=== PATIENT | female | born 1965 | race Caucasian/White ===

== ENCOUNTER → 2021-06-08 | Day surgery (SDC) | payer OTHER ==
[~2021-06-08] MED LIST: FAMOTIDINE 20 MG/2 ML VIAL IV ONE; GLUCAGON 1 MG/VIAL ONE; ONDANSETRON 4 MG/2 ML VIAL ONE; PROMETHAZINE INJ 25 MG/ML AMP ONE; propofoL 200 MG/20 ML VIAL IV ONE
--- OUTSIDE RECORDS SUMMARY | 2021-06-08 14:48 | XMS REPORT | Continuity of Care Document ---
:1965 Author Organization [facility] t Address [address] [place] [address] Care Team Providers Name Role Phone ISATU Attending Clinician Unavailable MISTY Attending Clinician Unavailable SG Attending Clinician Unavailable Payers Payer Name Policy Type Policy Number Effective Date Expiration Date S ource Problems Condition Condition Condition Status Onset Resolution Last Treating Co mments Source Name Details Category Date Date Treatment Clinician Date Joint pain Joint pain Problem Active U nivers of lower [place] extremity [place] [facility] Peroneal Peroneal Problem Active Unive rs tendinitis tendinitis it y of , right , right [place] [facility] Metatarsal Metatarsal Problem Active U nivers madyson, left madyson, left ity of foot foot [place] [facility] Lesion of Lesion of Problem Active Uni vers plantar plantar ity of nerve, nerve, [place] right right Physici lower limb lower limb an s Allergies, Adverse Reactions, Alerts Allergy Allergy Status Severity Reaction(s) Onset Inactive Treating Comm ents Source Name Type Date Date Clinician No Known DA Active U [facility] Allergie 09-22 [place] [facility] 00:00: [facility] Medications Ordered Filled Start Stop Current Ordering Indication Dosage Frequency Signature Comments Components Source Medication Medication Date Date Medication? Clinician (SIG) Name Name methylPREDN methylPREDN 2018-06 Yes MICHELLE Univers ISolone 4 ISolone 4 07-23 SG DIRECTED ity of MG Oral MG Oral 00:00: SUPPLY MANAGER [place] Tablet Tablet 00 Physici Therapy Therapy ans Pack Pack Procedures Procedure Date / Time Performed Performing Clinician [facility] e MR Foot wo contrast 2019-05-23 00:00:00 [facility] [id number] Physicians Encounters Start End Encounter Admission Attending Care Care Encounter Source Date/Time Date/Time Type Type Clinicians Facility Department ID 2020-06-18 2020-06-18 Outpatient ISATU [facility] [id number] 00:00:00 00:00:00 ANEUDY otero 2019-06-27 2019-06-27 [facility] [id number] Univers 13:45:00 13:45:00 t; prudence HURTADO [facility] shukri JAY M.D. [facility]ESIS [facility] Benitez yoder M.D. and Spine [facility] 2019-05-30 2019-05-30 RJ Brower [facility] [id number] Univers 11:30:00 11:30:00 t; nitish HURTADO M.D. [place] Melvin HURTADO M.D. [facility] 2019-05-23 2019-05-23 RJ G[facility] [id number] Univers 13:30:00 13:30:00 t; prudence MARTINEZ [facility] [place] MICHELLE, Medicine Physi ci SUPPLY MANAGER [facility] [address] Results This patient has no known results.
--- NOTE | 2021-06-08 15:50 | RAD REPORT ---
EXAM DESCRIPTION: RAD - Chest Single View - 06/08/2021 3:36 pm CLINICAL HISTORY: foreign body sensation in chest COMPARISON: None TECHNIQUE: AP portable chest image was obtained 06/08/2021 3:36 pm . FINDINGS: Lungs are clear. Trachea is midline. No air trapping is evident. Mild prominence of the in terstitial pattern believed be baseline. No foreign body is identifiable. Heart and vasculature are normal. No measurable pleural effusion and no pneumothorax. No acute bony a bnormality seen. No acute aortic findings suspected. IMPRESSION: No acute cardiopulmonary process.
[2021-06-08 16:08] LABS: Absolute Lymphocytes (CBC) 1.7 K/uL (0.7-4.9); Basophils % 0.9 % (0-1.3); Hematocrit 39.9 % (36.0-45.0); MPV 8.7 fL (7.6-11.3)
[2021-06-08 16:16] LABS: Protime INR 1.16
[2021-06-08 16:28] LABS: ALT/SGPT 22 U/L (12-78); AST/SGOT 19 U/L (15-37); Albumin 3.6 g/dL (3.4-5.0); Alkaline Phosphatase 72 U/L (45-117); BUN Blood Urea Nitrogen 21 mg/dL (7-18); Bicarbonate 28 mmol/L (21-32); Bilirubin Direct 0.1 mg/dL (0-0.2); Bilirubin Total 0.4 mg/dL (0.2-1.0); Glucose Level 104 mg/dL (74-106); Magnesium 2.3 mg/dL (1.8-2.4); Potassium 3.9 mmol/L (3.5-5.1); Protein, Total 7.1 g/dL (6.4-8.2); Sodium Level 142 mmol/L (136-145); Troponin (Emerg Dept Use Only) < 0.02 ng/mL (0.0-0.045)
--- NOTE | 2021-06-08 17:42 | EDPHYS ---
Physician Documentation [facility] Name: Braeden Lucio Age: 56 yrs Sex: Female : 1965 Arrival Date: 06/08/2021 Time: 14:47 Bed 10 Private MD: ED Physician Landry Gomez HPI: 06/08 15:25 This 56 yrs old Female presents to ER via Ambulatory with complaints of Foreign Body In cp Throat. 15:25 The patient or guardian reports chest pain that is located primarily in the substernal cp area. 15:25 Onset: today. The pain does not radiate. Patient reports she was eating a burrito and cp feels like she has food stuck in mid chest area. Patient reports nausea and vomiting since. Patient denies any previous history of having food stuck in esophagus. Historical: - Allergies: 15:03 Bactrim; vg1 15:03 benzocaine; vg1 - Home Meds: 15:03 Incruse Inhaler [Active]; ProAir [Active]; vg1 - PMHx: 15:03 Asthma; Hypothyroidism; HYPOGLYCEMIA; vg1 - Immunization history:: Client reports receiving the 2nd dose of the Covid vaccine. - Social history:: Smoking status: Patient denies any tobacco usage or history of. ROS: 15:30 Constitutional: Negative for body aches, chills, fever, poor PO intake. cp 15:30 Eyes: Negative for injury, pain, redness, and discharge. cp 15:30 ENT: Positive for difficulty swallowing, Negative for drainage from ear(s), ear pain, sore throat, difficulty handling secretions. 15:30 Cardiovascular: Positive for chest pain. 15:30 Respiratory: Negative for cough, shortness of breath, wheezing. 15:30 Abdomen/GI: Positive for nausea and vomiting, Negative for diarrhea, constipation, hematemesis. 15:30 Neuro: Negative for headache, weakness. 15:30 All other systems are negative. Exam: 15:35 Constitutional: The patient appears in no acute distress, alert, awake, cp non-diaphoretic, non-toxic, well developed, well nourished, uncomfortable. 15:35 Head/Face: Normocephalic, atraumatic. cp 15:35 Eyes: Periorbital structures: appear normal, Conjunctiva: normal, no exudate, no injection, Sclera: no appreciated abnormality, Lids and lashes: appear normal, bilaterally. 15:35 ENT: External ear(s): are unremarkable, Nose: is normal, Mouth: Lips: moist, Oral mucosa: moist, Posterior pharynx: Airway: no evidence of obstruction, patent, Voice: is normal. 15:35 Neck: ROM/movement: is normal, is supple, without pain, no range of motions limitations, no nuchal rigidity. 15:35 Chest/axilla: Inspection: normal. 15:35 Cardiovascular: Rate: normal, Rhythm: regular, Edema: is not appreciated, JVD: is not appreciated. 15:35 Respiratory: the patient does not display signs of respiratory distress, Respirations: normal, no use of accessory muscles, no retractions, labored breathing, is not present, Breath sounds: are clear throughout, no decreased breath sounds, no stridor, no wheezing. 15:35 Abdomen/GI: Inspection: abdomen appears normal, Bowel sounds: active, all quadrants, Palpation: abdomen is soft and non-tender, in all quadrants, rebound tenderness, is not appreciated, voluntary guarding, is not appreciated, involuntary guarding, is not appreciated. 15:35 Back: pain, is absent, ROM is normal. 15:35 Neuro: Orientation: to person, place \\T\\ time. Mentation: is normal, Motor: moves all fours, strength is normal, Sensation: is normal. 15:55 ECG was reviewed by the Attending Physician. cp Vital Signs: 15:00 BP 124 / 76; Pulse 60; Resp 16; Temp 98.2; Pulse Ox 100% ; Weight 58.97 kg; Height 5 vg1 ft. 8 in. (172.72 cm); Pain 0/10; 15:00 Body Mass Index 19.77 (58.97 kg, 172.72 cm) vg1 MDM: 15:17 Patient medically screened. cp 16:53 Physician consultation: Claude Live MD was called at 16:53, regarding consult, left cp message on voicemail. 17:20 ED course: consult with GI, DR Barb Slater, will consult on patient and requests cp transfer to hospitalist services \\T\\ [facility] . 17:40 Data reviewed: vital signs, nurses notes, lab test result(s), EKG, radiologic studies, cp plain films. 17:40 Test interpretation: by ED physician or midlevel provider: ECG, plain radiologic cp studies. Physician consultation: Claude Live MD was contacted at 17:37, regarding consult, patient's condition, and will see patient shortly. 06/08 15:18 Order name: Basic Metabolic Panel; Complete Time: 16:31 / 16:31 Interpretation: Normal except: CL 108; BUN 21; GFR 60. 06/08 15:18 Order name: CBC with Diff; Complete Time: 16:17 06/08 16:18 Interpretation: Reviewed. 06/08 15:18 Order name: LFT's; Complete Time: 16:31 06/08 15:18 Order name: Magnesium; Complete Time: 16:31 06/08 15:18 Order name: PT-INR; Complete Time: 16:31 06/08 15:18 Order name: Troponin (emerg Dept Use Only); Complete Time: 16:31 06/08 15:18 Order name: XRAY Chest (1 view); Complete Time: 16:17 06/08 16:18 Interpretation: Report review. 06/08 16:58 Order name: COVID-19 SARS RT PCR (Document "Date of Onset" if Symptomatic) 06/08 16:59 Order name: SARS-COV-2 RT PCR [facility] 06/08 15:18 Order name: EKG; Complete Time: 15:19 06/08 15:18 Order name: Cardiac monitoring; Complete Time: 16:03 06/08 15:18 Order name: EKG - Nurse/Tech; Complete Time: 16:00 06/08 15:18 Order name: IV Saline Lock; Complete Time: 16:00 06/08 15:18 Order name: Labs collected and sent; Complete Time: 16:00 06/08 15:18 Order name: O2 Per Protocol; Complete Time: 16:00 06/08 15:18 Order name: O2 Sat Monitoring; Complete Time: 16:01 06/08 15:18 Order name: Accucheck Blood Glucose; Complete Time: 16:04 cp EC:55 Rate is 61 beats/min. Rhythm is regular. NH interval is normal. QRS interval is normal. cp QT interval is normal. T waves are Inverted in lead aVR. Interpreted by me. Reviewed by me. Administered Medications: 16:00 Drug: Zofran (Ondansetron) 4 mg Route: IVP; Site: right antecubital; iw 16:00 Drug: Pepcid (famotidine) 20 mg Route: IVP; Site: right antecubital; iw 16:00 Drug: Glucagon 1 mg Route: IVP; Site: right antecubital; iw 18:23 Drug: Phenergan (promethazine) 12.5 mg Route: IVP; Site: right antecubital; iw 18:23 Drug: NS 0.9% 1000 ml Route: IV; Rate: 100 ml/hr; Site: right antecubital; iw Disposition Summary: 06/08/21 17:41 Hospitalization Ordered Hospitalization Status: Observation cp Provider: Claude Live cp Location: DAY SURGERY OTHER cp Condition: Stable cp Problem: new cp Symptoms: are unchanged cp Bed/Room Type: Standard cp Room Assignment: cp Diagnosis - Foreign body of alimentary tract, part unspecified, initial encounter cp - Nausea with vomiting, unspecified - intractable cp Forms: - Medication Reconciliation Form cp - SBAR form cp Signatures: Dispatcher [employer] Марина Pagan, RN KIZZY iw Ignacio Miguel PA PA cp Garcia, Victoria RN RN vg1
--- NOTE | 2021-06-08 17:42 | ER ---
Nurse's Notes [facility] Name: Braeden Lucio Age: 56 yrs Sex: Female : 1965 Arrival Date: 06/08/2021 Time: 14:47 Bed 10 Private MD: Diagnosis: Foreign body of alimentary tract, part unspecified, initial encounter;Nausea with vomiting, unspecified-intractable Presentation: 06/08 15:00 Chief complaint: Patient states: "Something feels stuck down in my stomach; I've tried vg1 to eat a piece of breath and I threw it up; drank water and that came up; drank some Dr Pepper and threw that up too" Pt also stated tried the Heimlich and nothing seemed to work. Coronavirus screen: Vaccine status: Patient reports receiving the 2nd dose of the covid vaccine. Client denies travel out of the [place] in the last 14 days. At this time, the client does not indicate any symptoms associated with coronavirus-19. Ebola Screen: Patient negative for fever greater than or equal to 101.5 degrees Fahrenheit, and additional compatible Ebola Virus Disease symptoms. Initial Sepsis Screen: Does the patient meet any 2 criteria? No. Patient's initial sepsis screen is negative. Does the patient have a suspected source of infection? No. Patient's initial sepsis screen is negative. Risk Assessment: Do you want to hurt yourself or someone else? Patient reports no desire to harm self or others. Onset of symptoms was June 08, 2021. 15:00 Method Of Arrival: Ambulatory vg1 15:00 Acuity: GENE 3 vg1 Triage Assessment: 15:03 General: Appears in no apparent distress. comfortable, Behavior is calm, cooperative. vg1 Pain: Denies pain. Respiratory: Airway is patent Respiratory effort is even, unlabored. Historical: - Allergies: 15:03 Bactrim; vg1 15:03 benzocaine; vg1 - Home Meds: 15:03 Incruse Inhaler [Active]; ProAir [Active]; vg1 - PMHx: 15:03 Asthma; Hypothyroidism; HYPOGLYCEMIA; vg1 - Immunization history:: Client reports receiving the 2nd dose of the Covid vaccine. - Social history:: Smoking status: Patient denies any tobacco usage or history of. Screenin:42 Abuse screen: Denies threats or abuse. Denies injuries from another. Nutritional iw screening: No deficits noted. Tuberculosis screening: No symptoms or risk factors identified. Fall Risk IV access (20 points). Assessment: 17:03 Reassessment: pt reports no relief, was unable to tolerate drinking water, still iw vomiting. Vital Signs: 15:00 BP 124 / 76; Pulse 60; Resp 16; Temp 98.2; Pulse Ox 100% ; Weight 58.97 kg; Height 5 vg1 ft. 8 in. (172.72 cm); Pain 0/10; 15:00 Body Mass Index 19.77 (58.97 kg, 172.72 cm) vg1 ED Course: 14:47 Patient arrived in ED. as 15:03 Triage completed. vg1 15:03 Arm band placed on. vg1 15:08 Марина Fuentes, RN is Primary Nurse. iw 15:13 Ignacio Miguel PA is PHCP. cp 15:13 Landry Gomez MD is Attending Physician. cp 15:36 XRAY Chest (1 view) In Process Unspecified. EDMS 15:50 EKG done, by ED staff, reviewed by Ignacio FIELDS. [facility] 15:56 Initial lab(s) drawn, by nc, sent to lab. Inserted saline lock: 20 gauge in right 3 antecubital area, using aseptic technique. Blood collected. 16:56 initiated a transfer with Cherelle from the [facility]. eb 17:17 connected the GI guest relations coordinator for [facility] with Ignacio Fields for patient transfer eb consultation. 17:39 Claude Live MD is Hospitalizing Provider. cp 17:39 cancelled the transfer at [facility]/ Dr. Live returned page and agrees to keep eb patient here. Administered Medications: 16:00 Drug: Zofran (Ondansetron) 4 mg Route: IVP; Site: right antecubital; iw 16:00 Drug: Pepcid (famotidine) 20 mg Route: IVP; Site: right antecubital; iw 16:00 Drug: Glucagon 1 mg Route: IVP; Site: right antecubital; iw 18:23 Drug: Phenergan (promethazine) 12.5 mg Route: IVP; Site: right antecubital; iw 18:23 Drug: NS 0.9% 1000 ml Route: IV; Rate: 100 ml/hr; Site: right antecubital; iw Outcome: 17:41 Decision to Hospitalize by Provider. cp 18:35 Patient left the ED. eb Signatures: Dispatcher [employer] Peg Uribe Irene, RN RN iw Ignacio Miguel PA PA cp Herrera, Deanna 3 Lucinda Scott Victoria RN RN vg1
[2021-06-08] MEDS: NA CHLORIDE 0.9% 1,000 ML ONE (18:30)
--- NOTE | 2021-06-08 19:39 | ENDO RPT ---
[address], [address] EGD PROCEDURE REPORT EXAM DATE: 06/08/2021 PATIENT NAME: Braeden Lucio MR#: [id number] BIRTHDATE: 1965 ATTENDING: Claude Live Dr STATUS: outpatient CRYSTAL FLAT GRINDER: Rose Marie Cisneros RN and Ange Jacobs INDICATIONS: The patient is a 56 yr old Female here for an EGD due to dysphagia (solids, liquids, saliva) and foreign body / food bolus ([employer] holliday burrito - eaten at 115 PM earlier today) impacted in esophagus PROCEDURE PERFORMED: EGD with foreign body removal MEDICATIONS: Per Anesthesia. TOPICAL ANESTHETIC: none CONSENT: The patient understands the risks and benefits of the procedure and understands that these risks include, but are not limited to: sedation, allergic reaction, infection, perforation and/or bleeding. Alternative means of evaluation and treatment include, among others: physical exam, x-rays, and/or surgical intervention. The patient elects to proceed with this endoscopic procedure. DESCRIPTION OF PROCEDURE: During intra-op preparation period all mechanical medical equipment was checked for proper function. Hand hygiene and appropriate measures for infection prevention was taken. Procedure, possible complications, and alternatives including but not limited to the possibility of bleeding, perforation, tear, infection, sepsis, need for surgery, need for blood transfusion, and anesthesia related complications were explained to the patient. After the risks, benefits and alternatives of the procedure were thoroughly explained, Informed consent was verified, confirmed and timeout was successfully executed by the treatment team. The patient was placed in the left lateral position. The patient was anesthetized with topical anesthesia. Through the anesthetized oropharyngeal area, the scope was passed without any difficulty. The Pentax EG-[id number] ([id number]) endoscope was introduced through the mouth and advanced to the second portion of the duodenum. Retroflexed views revealed a small hiatal hernia. The gastroscope was then slowly withdrawn and removed. A food bolus was found impacted in the lower esophagus and pushed into stomach with endoscope. A mild stricture was found in the gastroesophageal junction. A small hiatal hernia was found ADVERSE EVENTS: There were no complications. IMPRESSIONS: 1. Food bolus impacted in the lower esophagus - easily pushed into stomach with endoscope 2. 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 Small hiatal hernia RECOMMENDATIONS: acid suppression therapy REPEAT EXAM: Return in 1-3 week(s) for EGD. Claude Live Dr eSigned: Claude Live Dr 06/08/2021 7:39 PM cc: CPT CODES: ICD9 CODES: PATIENT NAME: Braeden LucioRiccardo MR#: [id number]
[2021-06-08 20:33] VITALS: BP 120/63; TEMP 97.5; O2SAT 97
--- NOTE | 2021-06-08 21:06 | CON ---
Date of Consultation: 06/08/2021 Reason For Consultation: Dysphagia to solids, liquids, saliva with food bolus impaction in the dista l esophagus. History Of Present Illness: The patient is a 56-year-old white female with history of hypothyroidism , hypoglycemia, asthma, obstructive sleep apnea, presented to hospital with dysphagia after eating be an burrito at [facility] at 1:15 earlier today. The patient states she has dysphagia to solids, liqui ds, and saliva at this time. She has been having positive dysphagia off and on over the past 10 year s. She denies history of any heartburn, reflux, nausea, vomiting, fevers, chills, bloating, belching , abdominal pain, melena, hematochezia, hematemesis, coffee-grounds emesis. She has gained 5 pounds over the past year. Past Medical History: Significant for hypothyroidism, hypoglycemia, recurrent asthma, obstructive sl eep apnea, left hip surgery for labrum tear, left knee surgery for a left meniscal tear, right ankle surgery, and right fifth toe surgery. The patient also reports recent Cardiology evaluation 3 weeks ago when she was in [place] and that was negative. Medications: Include a thyroid medicines at home. She has p.r.n. asthma medications as well. Allergies: ALLERGIES TO BENZOCAINE, SULFAMETHOXAZOLE, AND BACTRIM. Social History: She is , 2 children, ages 30 and 28. No tobacco. Occasional alcohol. Family History: Father of a brain tumor, possibly PML, so the tumor that if he would HIV AIDS h ave even though he did not have that and mother is alive with diabetes, asthma, carotid endarterectom y, and carotid artery stenosis. Review of Systems: The patient has dysphagia to solids, liquids, saliva at this time. She denies any history of heartbu rn, reflux, nausea, vomiting, bloating, belching, fevers, chills, night sweats, chest pain, shortness of breath, seizure, syncope, lower extremity muscle aches, joint aches, backaches, depression, anxie ty, melena, hematochezia, hematemesis, coffee-grounds emesis, hematuria, dysuria, polydipsia, hemopty sis. She has had 5 pounds weight gain now. Physical Examination: Vital Signs: She is afebrile with temperature 98.1 degrees Fahrenheit, pulse 63, respirations 16, bl ood pressure 110/87, O2 saturation 98%, and she is 5 feet 8 and 130 pounds, BMI of about probably ___ Laboratory Data: She has a white count of 6.1, hemoglobin of 13.4, hematocrit 40, MCV of 98, platele t count of 238, polys of 61%, lymphocytes 28%, monocytes 7%, eosinophils 4%, PT of 13.5, and INR of 1 .16. Sodium 142, potassium 3.9, chloride 108, bicarb 28, BUN 21, creatinine of 0.96, glucose 101, ca lcium 9.3, and magnesium 2.3. Total bilirubin 0.4, direct bilirubin 0.1, AST of 19, ALT 22, and hector line phosphatase 72. Troponin I is less than 0.02. Total protein 7.1, albumin 3.6, globulin 3.5. C OVID-19 PCR testing was negative. Chest x-ray in the emergency room was negative. Impression: 1.Dysphagia to solids, liquids, and saliva after eating a holliday burrito at 1:15 today at [facility]. She has 10 years of occasional dysphagia to solids, usually in the lower chest area as it is today. She denies any heartburn, reflux, nausea, vomiting, fevers, chills, bloating, belching, abdominal edgar n, melena, hematochezia, hematemesis, coffee-grounds emesis, hematuria, dysuria, polydipsia, depressi on, and anxiety. She has gained 5 pounds over the past year. 2.History of hypothyroidism, hypoglycemia recurrent, asthma, obstructive sleep apnea, left hip labru m surgery, left knee meniscus surgery, right ankle surgery and right fifth toe surgery. Negative Car diology evaluation 3 weeks ago when she was in [place]. Recommendations: 1.Proceed with EGD. 2.Continue IV fluids and supportive care. JORDAN/VIJI Voice ID: [id number] Report ID: [id number]
== END ==
LOC: ER 14:46 → OR 21:06
PROVIDERS: ATTEND Internal Medicine Gastroenterology
PROC: 0DC38ZZ Extirpation of Matter from Lower Esophagus, Via Natural or Artificial Opening Endoscopic (ICD-10-PCS; principal; 2021-06-08 18:30)
DX: R13.10 Dysphagia, unspecified (principal); T18.128A Food in esophagus causing other injury, initial encounter; X58.XXXA Exposure to other specified factors, initial encounter; Z20.822 Contact with and (suspected) exposure to COVID-19
CPT/HCPCS: 93005; 85025; 80048; 36415; 83735; 85610; 80076; 84484; 71045; 96375; 96374; 99284; 43247; U0003; J2704; J1610; J2550; J7030; J2405